=== PATIENT | male | born 1990 ===

== ENCOUNTER 2017-09-29 10:39 | Emergency (ER) | payer BC, SELFPAY ==
[2017-09-29] MEDS ORDERED: Ketorolac Tromethamine 30 MG/ML VIAL ONE (11:16)
[2017-09-29] MEDS ORDERED: Lorazepam 2 MG/ML VIAL ONE (11:16)
--- NOTE | 2017-09-29 11:24 | RAD ---
FRONTAL RADIOGRAPH CHEST: Date: 09/29/17 COMPARISON: None. HISTORY: Chest pain, pleurisy. FINDINGS: No pneumothorax, pleural fluid, focal consolidation, or alveolar edema. Heart and mediastinal contour s unremarkable. IMPRESSION: No acute findings. POS: [facility]
[2017-09-29 11:45] LABS: #Basophils 0.1 thou/uL (0.0-0.2); #Eosinphils 0.3 thou/uL (0.0-0.7); #Lymphocytes 2.8 thou/uL (1.20-3.40); #Monocytes 0.7 thou/uL (0.11-0.59); #Neutrophils 5.2 thou/uL (1.40-6.50); %Basophils 1.1 % (0.0-1.0); %Eosinophils 3.3 % (0.0-10.0); %Monocytes 7.3 % (0.0-10.0); %Neutrophils 57.3 % (42.0-75.0); Hemoglobin 16.7 g/dL (14.0-18.0); Mean Corpuscular HGB CONC 33.5 g/dL (32.0-36.0); Mean Corpuscular Volume 89.7 fl (80.0-94.0); Mean Platelet Volume 7.4 fL (7.4-10.4); Platelet Count 213 thou/uL (130-400); RBC Distribution Width 11.7 % (11.5-14.5); Red Blood Cell (RBC) Count 5.55 mill/uL (4.70-6.10); White Blood Cell (WBC) Count 9.1 thou/uL (4.8-10.8)
[2017-09-29 11:59] LABS: ALT (SGPT) 27 U/L (8-55); AST (SGOT) 18 U/L (5-34); Albumin 4.7 g/dL (3.5-5.0); Alkaline Phosphatase 62 U/L (40-150); Anion Gap 13 mmol/L (10-20); BUN (Urea Nitrogen) 9 mg/dL (8.9-20.6); Bilirubin, Total 0.7 mg/dL (0.2-1.2); CRP (Inflammatory) 0.94 mg/dL (= or < 0.5); Calc. Creatinine Clearance 0 mL/min (70-130); Calcium 9.9 mg/dL (7.8-10.44); Carbon Dioxide 24 mmol/L (22-29); Chloride 105 mmol/L (98-107); Estimated GFR-MDRD Greater than 90; Globulin 2.5 g/dL (2.4-3.5); Glucose 115 mg/dL (70-105); Potassium 3.9 mmol/L (3.5-5.1); Protein, Total 7.2 g/dL (6.0-8.3); Sodium 138 mmol/L (136-145)
--- NOTE | 2017-09-29 12:10 | ULT ---
RIGHT UPPER QUADRANT ULTRASOUND: 09/29/2017 HISTORY: Right upper quadrant pain. COMPARISON: None. TECHNIQUE: Multiplanar boggs-scale sonographic imaging of the right upper quadrant obtained. FINDINGS: The imaged pancreas is unremarkable. The tail is obscured by bowel gas. No focal liver lesion or in trahepatic biliary dilatation is noted. The common bile duct measures 3 mm (within normal limits). The gallbladder is contracted. No gallstones or pericholecystic fluid is noted. Sonographic Torrez sign is negative. The right kidney measures 9.7 cm in craniocaudal dimension and demonstrates no sto ne, hydronephrosis, or mass. IMPRESSION: No acute findings. POS: [facility]
--- NOTE | 2017-10-16 14:38 | EKG ---
Test Reason : Blood Pressure : / mmHG Vent. Rate : 085 BPM Atrial Rate : 085 BPM P-R Int : 148 ms QRS Dur : 084 ms QT Int : 368 ms P-R-T Axes : 068 088 045 degrees QTc Int : 437 ms Normal sinus rhythm Normal ECG Confirmed by HANS REDDY, MARK Sheriff ([id number]), online content editor HAYDEN GUARDADO ([id number]) on 10/16/2017 2:38:11 PM Referred By: HANS Confirmed By:MARK MAXWELL MD
== END 2017-09-29 12:37 | disposition home or self-care (01) ==
LOC: ERS 10:39
DX: R09.1 Pleurisy (principal); F17.210 Nicotine dependence, cigarettes, uncomplicated; Z71.6 Tobacco abuse counseling
CPT/HCPCS: 71045; 76705; 80053; 83690; 85025; 85652; 86140; 93005; 96374; 96375; 99406; J1885; J2060